=== PATIENT | male | born 1975 | race Two or more races ===

== ENCOUNTER → 2020-02-14 | Emergency (ER) | payer OTHER ==
[~2020-02-14] VITALS: Ht 167.6 cm; Wt 68.0 kg
[~2020-02-14] MED LIST: AMBIEN10 MG; CLONAZEPAM2 MG
== END | disposition left against medical advice (07) ==
LOC: ER 04:40
DX: Z53.21 Procedure and treatment not carried out due to patient leaving prior to being seen by health care provider (principal)

== ENCOUNTER 2020-05-14 00:23 | Emergency (ER) | payer OTHER ==
[~2020-05-14] VITALS: Ht 167.6 cm; Wt 68.0 kg
[2020-05-14] MEDS ORDERED: DICLOFENAC SODI75 MG PO (01:08)
== END 2020-05-14 01:20 | disposition home or self-care (01) ==
LOC: ER 00:23
DX: M54.5 Low back pain (principal)

== ENCOUNTER 2020-05-16 00:39 | Emergency (ER) | payer OTHER ==
[~2020-05-16] VITALS: Ht 167.6 cm; Wt 68.0 kg
[~2020-05-16 00:39] MED LIST changes: +DICLOFENAC SODI75 MG PO
[2020-05-16] MEDS ORDERED: DICLOFENAC POTA50 MG PO (14:50)
== END 2020-05-16 02:38 | disposition home or self-care (01) ==
LOC: ER 00:39
DX: M79.672 Pain in left foot (principal)

== ENCOUNTER 2020-05-16 11:55 | Emergency (ER) | payer OTHER ==
[~2020-05-16] VITALS: Ht 167.6 cm; Wt 68.9 kg
[2020-05-16] MEDS ORDERED: DICLOFENAC POTA50 MG PO (14:50)
== END 2020-05-16 15:28 | disposition home or self-care (01) ==
LOC: ER 11:55
DX: M72.2 Plantar fascial fibromatosis (principal)

== ENCOUNTER 2020-06-18 02:18 | Emergency (ER) | payer OTHER ==
[~2020-06-18] VITALS: Ht 167.6 cm; Wt 68.0 kg
[~2020-06-18 02:18] MED LIST changes: +DICLOFENAC POTA50 MG PO
== END 2020-06-18 03:01 | disposition home or self-care (01) ==
LOC: ER 02:18
DX: M54.5 Low back pain (principal)

== ENCOUNTER 2021-04-19 04:03 | Emergency (ER) | payer OTHER ==
[~2021-04-19] VITALS: Ht 170.2 cm; Wt 70.3 kg
[2021-04-19] MEDS ORDERED: SEROQUEL200 MG (04:24)
[2021-04-19] MEDS ORDERED: CLONAZEPAM1 MG (04:24)
[2021-04-19] MEDS ORDERED: PROVENTIL HFA6.7 GM IH (05:37)
[2021-04-19] MEDS ORDERED: ALBUTEROL2.5 MG/3 M IH (05:37)
== END 2021-04-19 05:40 | disposition home or self-care (01) ==
LOC: ER 04:03
DX: J45.909 Unspecified asthma, uncomplicated (principal)